=== PATIENT | male | born 1975 | race Caucasian/White ===

== ENCOUNTER 2018-01-16 20:18 | Emergency (ER) | payer OTHER ==
[2018-01-16] MEDS: IBUPROFEN 600 MG TAB PO (22:07)
== END 2018-01-16 23:52 | disposition home or self-care (01) ==
LOC: FTE 20:18
DX: S06.0X0A Concussion without loss of consciousness, initial encounter (principal); S16.1XXA Strain of muscle, fascia and tendon at neck level, initial encounter; W22.8XXA Striking against or struck by other objects, initial encounter; Y92.39 Other specified sports and athletic area as the place of occurrence of the external cause
CPT/HCPCS: 70450; 72040; 99284-25

== ENCOUNTER 2018-06-23 10:52 | Emergency (ER) | payer OTHER | END 2018-06-23 13:39 | disposition home or self-care (01) | LOC: FTE 10:52 | DX: S82.832A Other fracture of upper and lower end of left fibula, initial encounter for closed fracture (principal); F17.210 Nicotine dependence, cigarettes, uncomplicated; W50.0XXA Accidental hit or strike by another person, initial encounter; Y92.9 Unspecified place or not applicable | CPT/HCPCS: 29515; 73610; 99283-25 ==